=== PATIENT | male | born 1985 | race American Indian/Alaskan Native ===

== ENCOUNTER 2018-03-13 10:29 | Outpatient (CLI) | payer BC ==
--- NOTE | 2018-03-13 11:10 | XRay Report ---
RIGHT HIP, 2 VIEWS History: Idiopathic aseptic necrosis of right femur Findings: There is been previous nailing of the right femoral neck. The hardware has been removed the tract is still visible. The right femoral head is slightly sclerotic with large area of suspected avascular necrosis. There is subtle fragmentation of the superior femoral head on the AP image. The remainder of the exam is unremarkable. 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 Consider further evaluation with MRI.
== END 2018-03-13 10:30 | disposition home or self-care (01) ==
LOC: XRAY 10:29
PROVIDERS: ATTEND Orthopaedic Surgery
DX: M87.851 Other osteonecrosis, right femur (principal)

== ENCOUNTER 2018-06-20 09:59 | Outpatient (CLI) | payer BC ==
--- NOTE | 2018-06-20 15:04 | Magnetic Resonance Report ---
MR LOWER EXTREMITY NON-JOINT RIGHT WITHOUT CONTRAST History: Idiopathic aseptic necrosis of right femur. Technique: Multisequence, multiplanar MRI without contrast was performed through the right femur. Comparison: Right hip films dated 03/13/18. FINDINGS: A moderate to large sized area of avascular necrosis is identified in the superior right femoral head measuring 3.0 x 2.0 cm in axial plane. Minimal femoral head collapse is suspected. There appears to be a tract in the femoral neck from a previous femoral neck screw which has apparently been removed. The bone marrow signal in the remainder of the right femur is within normal limits. No evidence for acute fracture or bone lesion. The musculotendinous structures are unremarkable. IMPRESSION: Right femoral head necrosis with evidence of mild collapse as outlined above.
== END 2018-06-20 10:00 | disposition home or self-care (01) ==
LOC: MRI 09:59
PROVIDERS: ATTEND Orthopaedic Surgery
DX: M87.051 Idiopathic aseptic necrosis of right femur (principal)